=== PATIENT | male | born 2005 | race Hispanic/Latino ===

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

== ENCOUNTER 2025-01-27 18:51 | Emergency (ER) | payer SELFPAY, OTHER ==
[~2025-01-27 18:51] MED LIST: Iopamidol-370 76% 500 ML MDV (1 ML CHARGE) ONE
[2025-01-27 19:12] LABS: #Basophils 0.07 10x3/uL (0.0-0.2); #Eosinophils 0.11 10x3/uL (0.0-0.7); #Monocytes 1.16 10x3/uL (0.11-0.59); #Neutrophils 9.84 10x3/uL (1.40-6.50); %Basophils 0.5 % (0.0-1.0); %Eosinophils 0.7 % (0.0-10.0); %Lymphocytes 25.6 % (28.0-48.0); %Monocytes 7.6 % (0.0-4.0); %Neutrophils 64.9 % (31.0-61.0); Hematocrit 42.1 % (42.0-52.0); Hemoglobin 14.1 g/dL (14.0-18.0); Mean Corpuscular Hemoglobin 28.0 pg (25.0-35.0); Mean Corpuscular Volume 83.7 fL (78.0-98.0); Platelet Count 277 10x3/uL (130-400); Red Blood Cell (RBC) Count 5.03 mill/uL (4.00-5.20); White Blood Cell (WBC) Count 15.17 10x3/uL (4.8-10.8)
[2025-01-27 19:28] LABS: ALT (SGPT) 33 U/L (Less than 45); AST (SGOT) 47 U/L (11-34); Albumin 4.4 g/dL (3.1-4.5); Alkaline Phosphatase 72 U/L (50-130); Anion Gap 14 mmol/L (10-20); BUN (Urea Nitrogen) 20 mg/dL (8.9-20.6); Bilirubin, Total 0.9 mg/dL (0.3-1.2); Calc. Creatinine Clearance 0 mL/min (70-130); Calcium 9.2 mg/dL (7.8-10.44); Carbon Dioxide 25 mmol/L (22-29); Chloride 105 mmol/L (98-107); Globulin 3.0 g/dL (2.4-3.5); Glucose 113 mg/dL (70-105); INR-International Normal Ratio 1.0; Lipase 19 U/L (8-78); Potassium 3.5 mmol/L (3.5-5.1); Prothrombin Time 13.7 sec (12.0-14.7); Sodium 140 mmol/L (136-145)
[2025-01-27 19:29] LABS: PTT 26.4 sec (22.9-36.1)
[2025-01-27] MEDS ORDERED: Lidocaine 1% PF 5 ML VIAL ONE (20:01)
[2025-01-27] MEDS ORDERED: Lidocaine 1% w/Epinephrine 1:100K 20 ML VIAL ONE (20:05)
[2025-01-27] MEDS ORDERED: Acetaminophen 500 MG TAB ONE (21:38)
== END 2025-01-27 21:15 | disposition home or self-care (01) ==
LOC: ERS 18:51
DX: S06.0XAA Concussion with loss of consciousness status unknown, initial encounter (principal); S01.111A Laceration without foreign body of right eyelid and periocular area, initial encounter; S13.4XXA Sprain of ligaments of cervical spine, initial encounter; S80.11XA Contusion of right lower leg, initial encounter; V89.2XXA Person injured in unspecified motor-vehicle accident, traffic, initial encounter; Z55.6 Problems related to health literacy
CPT/HCPCS: 12013; 36415; 70450; 70486; 71260; 72125; 74177; 80053; 80307; 83690; 85025; 85610; 85730; 86850; 86900; 86901; 90471; 90715; 93005; 94760; 96374; G0390; J3010; Q9967